=== PATIENT | female | born 1950 | race Caucasian/White ===

== ENCOUNTER 2019-08-24 23:59 | Inpatient (IN) | payer MEDICAID, MEDICARE, OTHER ==
[~2019-08-24] VITALS: Ht 160 cm; Wt 56.7 kg
[2019-08-25] MEDS ORDERED: HYDROCODONE/APAP 10/325MG 1 EA TABLET PO ONE (00:30)
[2019-08-25] MEDS ORDERED: IBUPROFEN 600 MG TABLET PO ONE ×2 (00:30→00:32)
[2019-08-25] MEDS ORDERED: HYDROCODONE/APAP 10/325MG 1 EA TABLET ONE (00:32)
[2019-08-25 00:43] LABS: BASOPHILS # (AUTO) 0.2 /CMM (0.0-0.2); BASOPHILS % (AUTO) 0.9 % (0.0-2.0); EOSINOPHILS % (AUTO) 0.2 % (0.0-6.0); HEMATOCRIT 38 % (33-45); HEMOGLOBIN 12.3 g/dL (11.5-14.8); LYMPHOCYTES # (AUTO) 2.7 /CMM (0.8-4.8); LYMPHOCYTES % (AUTO) 15.1 % (20.0-44.0); MEAN CORPUSCULAR HGB CONC 33 g/dl (31.0-36.0); MEAN CORPUSCULAR VOLUME 86 fL (82-100); MONOCYTES # (AUTO) 1.3 /CMM (0.1-1.30); MONOCYTES % (AUTO) 6.9 % (2.0-12.0); NEUTROPHILS # (AUTO) 13.9 /CMM (1.8-8.9); NEUTROPHILS % (AUTO) 76.9 % (43.0-81.0); PLATELET COUNT (AUTO) 270 /CMM (150-450); RED BLOOD CELL COUNT(AUTO) 4.38 MIL/uL (4.0-5.2)
[2019-08-25 01:01] LABS: ALBUMIN 3.1 g/dL (3.4-5.0); BILIRUBIN,TOTAL 0.2 mg/dL (0.2-1.0); CALCIUM, SERUM 8.6 mg/dL (8.5-10.1); CREATININE 0.8 mg/dL (0.6-1.3); POTASSIUM 5.4 mmol/L (3.5-5.1); TOTAL PROTEIN, SERUM 5.9 g/dL (6.4-8.2)
--- NOTE | 2019-08-25 01:07 | NUR ---
PT PROVIDED WITH 2 CARTON OF ORANGE HUICE AND SOME PUDDING D/T GLUCOSE REPORTED AT 45 BY LAB.
--- NOTE | 2019-08-25 01:26 | NUR ---
BIBS TO ER BED 7. AAOX4. NOT IN RESP DISTRESS, BREATHING EVEN AND UNLABORED. C/O BILAT LEG SWELLING, BACK PAIN, NECK PAIN AND SHOULDER PAIN. PT VERBALIZED THAT SHE WENT AMA FROM [facility] BECAUSE "THEY WERE NOT FEEDING ME". NO NOTED SOB. MD WAS AT BEDSIDE FOR EVAL. ORDERS RECEIVED NOTED AND CARRIED OUT. PT REFUSED MOTRIN AND NORCO MEDICATION MD AWARE. LAB WAS DRAWN MARÍA HEATH RESULT @ 45, GIVEN ORANGE JUICE AND PUDDING, WILL RE LINDA HEATH. WILL CONTINUE TO MONITOR
[2019-08-25] MEDS ORDERED: IPRATROPIUM NEB FS 0.5 MG/2.5 ML AMPUL.NEB ONE (01:47)
[2019-08-25] MEDS ORDERED: ALBUTEROL FS 2.5 MG/3 ML VIAL.NEB ONE (01:47)
[2019-08-25] MEDS ORDERED: IPRATROPIUM NEB FS 0.5 MG/2.5 ML AMPUL.NEB NEB ONE (02:00)
[2019-08-25] MEDS ORDERED: ALBUTEROL FS 2.5 MG/3 ML VIAL.NEB CONTNEB ONE (02:00)
[2019-08-25] MEDS ORDERED: predniSONE 20 MG TABLET PO ONE (02:00)
[2019-08-25] MEDS ORDERED: AZITHROMYCIN 250 MG TABLET PO ONE (02:00)
[2019-08-25] MEDS ORDERED: predniSONE 20 MG TABLET ONE (02:04)
[2019-08-25] MEDS ORDERED: AZITHROMYCIN 250 MG TABLET ONE (02:04)
[2019-08-25 02:06] LABS: ALANINE AMINOTRANSFERASE 32 U/L (12-78); ALBUMIN 3.2 g/dL (3.4-5.0); ALKALINE PHOSPHATASE 61 U/L (46-116); ASPARTATE AMINOTRANSFERASE 21 U/L (15-37); B-TYPE NATRIURETIC PEPTIDE 1324 PG/ML (0-125); BILIRUBIN,DIRECT 0.1 mg/dL (0.0-0.2); BILIRUBIN,TOTAL 0.2 mg/dL (0.2-1.0); TOTAL PROTEIN, SERUM 5.9 g/dL (6.4-8.2)
--- NOTE | 2019-08-25 02:17 | NUR ---
RECHECKED BS. STILL LOW AT 41 DESPITE ORANGE JUICE AND PUDDING. AWARE.
[2019-08-25] MEDS ORDERED: Sodium Chloride 154 MEQ in IV 10% DEXTROSE 1,000 ML IV PRN (02:30)
[2019-08-25] MEDS ORDERED: IV 10% DEXTROSE 1,000 ML IV ONE (03:00)
[2019-08-25 04:03] LABS: APPEARANCE,URINE Clear (CLEAR); BILIRUBIN,URINE Negative (NEGATIVE); BLOOD, URINE Negative Ery/uL (NEGATIVE); COLOR,URINE Yellow (YELLOW); KETONES,URINE Negative (NEGATIVE); LEUKOCYTE ESTERASE ,URINE Small (NEGATIVE); NITRITE, URINE Negative (NEGATIVE); PROTEIN,URINE Negative (NEGATIVE); UGLUCOSE Negative (NEGATIVE); UROBILINOGEN,URINE 0.2 EU/dL (0.2)
[2019-08-25] MEDS ORDERED: IV D5/0.45 NACL 1,000 ML IV PRN (04:50)
--- NOTE | 2019-08-25 04:54 | NUR ---
BED ASSIGNMENT 313-1
[2019-08-25] MEDS ORDERED: ONDANSETRON 4 MG TAB.RAPDIS ONE (04:55)
[2019-08-25] MEDS ORDERED: IV D5W 1,000 ML IV ONE (05:00)
[2019-08-25] MEDS ORDERED: ONDANSETRON HCL/PF 4 MG/2 ML VIAL IVP PRN (05:00)
[2019-08-25] MEDS ORDERED: MAGNESIUM HYDROXIDE 30 ML UDC PO PRN (05:00)
[2019-08-25] MEDS ORDERED: DEXTROSE 50%-WATER 50 ML DISP.SYRIN IV PRN (05:00)
[2019-08-25] MEDS ORDERED: HYDROCODONE/APAP 5/325MG 1 EACH TABLET PO PRN (05:00)
[2019-08-25] MEDS ORDERED: ACETAMINOPHEN 325 MG TABLET PO PRN (05:00)
[2019-08-25] MEDS ORDERED: MAG HYDROX/AL HYDROX/SIMETH 30 ML UDC PO PRN (05:00)
[2019-08-25] MEDS ORDERED: ZOLPIDEM TARTRATE 5 MG TABLET PO PRN (05:00)
[2019-08-25 05:10] LABS: BACTERIA,URINE Few /HPF (None Seen); RBC,URINE 0-2 /HPF (0-2); SQUAMOUS EPITHELIAL CELL,UR Few /HPF (None Seen)
--- NOTE | 2019-08-25 05:13 | NUR ---
REPORT GIVEN TO STARLA AVILES FOR JACKIE
[2019-08-25] MEDS ORDERED: ONDANSETRON HCL 4 MG/5 ML SOLUTION PO ONE (05:30)
[2019-08-25 05:45] VITALS: BP 153/81
--- NOTE | 2019-08-25 05:45 | NUR ---
tele/rn notes/NEW ADMISSION NOTES PATIENT IS A 69 YO FEMALE WHO WAS ADMITTED AND BROUGHT FROM ER ON A GURNEY FOR COPD EXACERBATION AND HYPOGLYCEMIA EPISODE, PATIENT CAME FROM [facility] AND LEFT AMA BEC REPORTED NOT BEING FED, UPON ADMISSION PATIENT BLOOD SUGAR VERY LOW IN THE 40'S. PATIENT WITH LABORED BREATHING AND ABLE TO WALK WITH SUPERVISION WITH WEAKNESS, ALERT ORIENTED X3, ABLE TO VERBALIZE NEEED, REQUESTING FOR ASSISTANCE WITH CASE MANAGEMENT FOR PLACEMENT AND MEDICATION. BED LOCKED, ROOM ORIENTATION PROVIDED, BELONGINGS CHECK, OFFERED AND PROVIDED SNACKS.BED LOCK, TELE ABDIRAHMAN GEE SR IN 70'S, ADMITING DR GAMING, MEDICATIONS REPORTED. TO MONITOR.
--- NOTE | 2019-08-25 06:00 | NUR ---
PT TRANSPORTED TO [facility] [address] WITH RN AND EMT AT BEDSIDE W/ ACLS PRTOTOCOL. NAD NOTED. PT AMBULATED FROM GURNEY TO BED ON STEADY GAIT W/O ASSIST
[2019-08-25] MEDS: IPRATROPIUM NEB FS 0.5 MG/2.5 ML AMPUL.NEB NEB SCH ×5 (06:06→20:01)
[2019-08-25] MEDS: ALBUTEROL FS 2.5 MG/3 ML VIAL.NEB NEB SCH ×5 (06:06→20:01)
[2019-08-25] MEDS: BLOOD SUGAR DIAGNOSTIC 1 EACH STRIP IN SCH ×5 (06:57→22:05)
[2019-08-25] MEDS: methylPREDNISolone SOD SUCC 125 MG/2ML VIAL IV SCH ×2 (07:09→16:51)
[2019-08-25] MEDS: INSULIN REGULAR, HUMAN 100 UNIT/ML 3 ML VIAL SQ PRN ×5 (07:11→22:18)
--- NOTE | 2019-08-25 07:25 | NUR ---
RN OPENING NOTE PT WAS RECEIVED IN BED AT LOWEST AND LOCKED WITH SIDE RAILS UP X2, A/O X4 BREATHING EVEN AND UNLABORED ON RA WITH NO S/S OF ANY DISTRESS OR PAIN AT THIS TIME, IV IS PATENT AND INTACT, ON TELE MONITOR SHOWING SR 70'S, PT NOTED TO BE AMBULATORY BUT REQUIRING MINOR ASSISTANCE, BS ARE MORE STABLE WITH PATIENT CURRENTLY EATING SNACKS AT THIS TIME, SAFETY PRECAUTIONS IN PLACE, CALL LIGHT IN REACH, WILL MONITOR ACCORDINGLY
[2019-08-25 07:55] VITALS: BP 148/76
[2019-08-25] MEDS ORDERED: MONT10TA22 PO (08:09)
[2019-08-25] MEDS ORDERED: QUET200T PO (08:09)
[2019-08-25] MEDS ORDERED: LISI-603 PO (08:09)
[2019-08-25] MEDS ORDERED: NYST5ORA MM (08:09)
[2019-08-25] MEDS ORDERED: AMLO10TA4 PO (08:09)
[2019-08-25] MEDS ORDERED: METF-440 PO (08:09)
[2019-08-25] MEDS ORDERED: ASPI-1169 PO (08:09)
[2019-08-25] MEDS ORDERED: FLUC100T PO (08:09)
[2019-08-25] MEDS ORDERED: SITA100T PO (08:09)
[2019-08-25] MEDS ORDERED: CITA20TA19 PO (08:09)
[2019-08-25] MEDS ORDERED: LORA-259 PO (08:09)
[2019-08-25] MEDS ORDERED: FAMO-131 PO (08:09)
[2019-08-25] MEDS ORDERED: TRAZ-257 PO (08:09)
[2019-08-25] MEDS: PANTOPRAZOLE 40 MG TABLET.DR PO SCH (08:11)
[2019-08-25] MEDS: MORPHINE SULFATE INJ 2 MG/ML DISP.SYRIN IV PRN ×4 (10:36→23:58)
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
[2019-08-25 16:00] VITALS: BP_SYST 138; BP_SYST 172; BP_DIAS 60; BP_DIAS 97
[2019-08-25] MEDS ORDERED: CLONIDINE HCL 0.1 MG TABLET PO PRN (16:00)
--- NOTE | 2019-08-25 16:00 | NUR ---
RN NOTE BP NOTED TO BE 181/100, MADE AWARE, WILL AWAIT FOR ORDERS
[2019-08-25] MEDS: LORAZEPAM 1 MG TABLET PO PRN (16:15)
[2019-08-25 18:11] VITALS: BP 166/80
--- NOTE | 2019-08-25 18:35 | NUR ---
RN CLOSING NOTE PT IN BED AT LOWEST AND LOCKED WITH SIDE RAILS UP X2, A/O X4 BREATHING EVEN AND UNLABORED ON RA WITH NO DISTRESS NOTED AT THIS TIME, IV IS PATENT AND INTACT, LAST BP WAS NOTED TO BE 166/80, SAFETY PRECAUTIONS IN PLACE, CALL LIGHT IN REACH, ALL NEEDS ATTENDED TO, WILL ENDORSE TO NIGHT RN FOR JACKIE.
--- NOTE | 2019-08-25 19:30 | NUR ---
MS RN OPENING NOTES PATIENT AWAKE IN BED. A/OX4. ON ROOM AIR. NO S/S OF SOB. PATIENT COMPLAINING OF RIGHT SHOULDER PAIN RATED 9/10. IV PRESENT ON LEFT WRIST, SIZE 20, INTACT & PATENT, HEP LOCKED. PATIENT ABLE TO VERBALIZE NEEDS. BED LOCKED, SIDE RAILS X2, CALL LIGHT WITHIN REACH. WILL CONTINUE TO MONITOR.
[2019-08-25 20:00] VITALS: BP 156/89
[2019-08-25] MEDS ORDERED: SODIUM POLYSTYRENE SULFONATE 15 G/60 ML BOTTLE PO ONE (21:30)
[2019-08-25] MEDS ORDERED: LORAZEPAM 1 MG TABLET PO PRN (21:30)
[2019-08-25] MEDS: MONTELUKAST SODIUM (10MG) 10 MG TABLET PO SCH (22:19)
[2019-08-25] MEDS ORDERED: FUROSEMIDE 20 MG/2 ML VIAL IV ONE (23:00)
[2019-08-26] MEDS: ALBUTEROL FS 2.5 MG/3 ML VIAL.NEB NEB SCH ×6 (00:58→21:15)
[2019-08-26] MEDS: IPRATROPIUM NEB FS 0.5 MG/2.5 ML AMPUL.NEB NEB SCH ×6 (00:58→21:15)
--- NOTE | 2019-08-26 01:30 | NUR ---
MS RN NOTES PATIENT'S BLOOD SUGAR 438. ISA NOTIFIED AND MADE AWARE. PER ORDERS, KEEP PATIENT ON MILD SLIDING SCALE AND ADMINISTER 10 UNITS OF REGULAR INSULIN
[2019-08-26] MEDS: BLOOD SUGAR DIAGNOSTIC 1 EACH STRIP IN SCH ×6 (01:33→21:24)
[2019-08-26] MEDS: INSULIN REGULAR, HUMAN 100 UNIT/ML 3 ML VIAL SQ PRN ×5 (01:34→21:28)
[2019-08-26] MEDS: LORAZEPAM 1 MG TABLET PO PRN ×3 (01:50→23:52)
[2019-08-26] MEDS: AZITHROMYCIN 500 MG in IV D5W 250 ML IV SCH (02:31)
[2019-08-26] MEDS: methylPREDNISolone SOD SUCC 125 MG/2ML VIAL IV SCH (05:24)
[2019-08-26] MEDS: MORPHINE SULFATE INJ 2 MG/ML DISP.SYRIN IV PRN ×4 (05:24→21:13)
--- NOTE | 2019-08-26 07:35 | NUR ---
MS RN CLOSING NOTES PATIENT AWAKE IN BED. A/OX4. ON ROOM AIR. NO S/S OF ACUTE RESPIRATORY DISTRESS AND NO COMPLAINTS OF PAIN AT THIS TIME. IV PRESENT ON RIGHT FA, SIZE 22, INTACT & PATENT, HEP LOCKED. BED LOCKED, SIDE RAILS X2, CALL LIGHT WITHIN REACH. WILL ENDORSE TO DAY SHIFT NURSE TO FOLLOW PLAN OF CARE.
[2019-08-26 07:53] LABS: BASOPHILS % (AUTO) 0.4 % (0.0-2.0); HEMATOCRIT 32 % (33-45); HEMOGLOBIN 10.8 g/dL (11.5-14.8); LYMPHOCYTES # (AUTO) 0.6 /CMM (0.8-4.8); LYMPHOCYTES % (AUTO) 5.4 % (20.0-44.0); MEAN CORPUSCULAR HGB CONC 34 g/dl (31.0-36.0); MEAN CORPUSCULAR VOLUME 84 fL (82-100); MONOCYTES # (AUTO) 0.4 /CMM (0.1-1.30); MONOCYTES % (AUTO) 3.3 % (2.0-12.0); NEUTROPHILS # (AUTO) 10.1 /CMM (1.8-8.9); NEUTROPHILS % (AUTO) 90.9 % (43.0-81.0); PLATELET COUNT (AUTO) 181 /CMM (150-450); RED BLOOD CELL COUNT(AUTO) 3.75 MIL/uL (4.0-5.2); WHITE BLOOD COUNT (AUTO) 11.1 K/uL (4.3-11.0)
[2019-08-26 08:00] VITALS: BP 147/82
--- NOTE | 2019-08-26 08:00 | NUR ---
ms rn received on bed, awake,alert,oriented x4,not in any form of distress, respirations even and unlabored,no sob noted, lungs are clear,abdomen soft,positive bowel sounds,denies pain at this time,all needs attended.
[2019-08-26 08:33] LABS: CALCIUM, SERUM 8.3 mg/dL (8.5-10.1); CREATININE 0.9 mg/dL (0.6-1.3); MAGNESIUM 1.5 mg/dL (1.8-2.4); POTASSIUM 4.4 mmol/L (3.5-5.1)
[2019-08-26 08:40] LABS: THYROID STIMULATING HORMONE 1.203 uIU/mL (0.358-3.74)
[2019-08-26 09:00] LABS: LYMPHOCYTES % (MANUAL) 7 % (16-48); MONOCYTES % (MANUAL) 4 % (0-11.0); NEUTROPHILS % (MANUAL) 89 (42-76)
--- NOTE | 2019-08-26 09:00 | NUR ---
ms sauer breakfast served,due meds given,tolerated well.
[2019-08-26 09:12] LABS: ALBUMIN 2.7 g/dL (3.4-5.0); BILIRUBIN,TOTAL 0.3 mg/dL (0.2-1.0); TOTAL PROTEIN, SERUM 5.1 g/dL (6.4-8.2)
[2019-08-26] MEDS: ASPIRIN 81 MG TAB.CHEW PO SCH (09:20)
[2019-08-26] MEDS: CITALOPRAM HYDROBROMIDE 20 MG TABLET PO SCH (09:20)
[2019-08-26] MEDS: LINAGLIPTIN 5 MG TABLET PO SCH (09:20)
--- NOTE | 2019-08-26 09:20 | NUR ---
ms rn was seen by dr. NASH W/ ORDERS MADE AND CARRIED OUT.
[2019-08-26] MEDS: LISINOPRIL (20MG) 20 MG TABLET PO SCH (09:21)
[2019-08-26] MEDS: AMLODIPINE BESYLATE 10 MG TABLET PO SCH (09:21)
[2019-08-26] MEDS: PANTOPRAZOLE 40 MG TABLET.DR PO SCH (09:27)
--- NOTE | 2019-08-26 11:00 | NUR ---
MS STARLA WAS SEEN BY MANE LEON W/ ORDERS MADE AND CARRIED OUT.
[2019-08-26] MEDS: methylPREDNISolone SOD SUCC 40 MG/ML VIAL IV SCH ×2 (12:49→21:13)
[2019-08-26] MEDS: Magnesium 1GM/D5W 100ML PREMIX 100 ML IV SCH ×2 (12:49→13:57)
[2019-08-26] MEDS ORDERED: diphenhydrAMINE HCL 25 MG CAPSULE PO PRN (15:30)
[2019-08-26 16:00] VITALS: BP 161/85
--- NOTE | 2019-08-26 17:22 | NUR ---
MS RN ON BED, NO DISTRESS NOTED.
[2019-08-26] MEDS ORDERED: QUETIAPINE FUMARATE 100 MG TABLET PO SCH (18:00)
--- NOTE | 2019-08-26 18:07 | NUR ---
ms rn on bed,no distress noted.
--- NOTE | 2019-08-26 19:44 | NUR ---
MS RN OPENING NOTES PATIENT RESTING IN BED COMFORTABLY; A/O X4; BREATHING EVEN AND UNLABORED; NO SOB; PATIENT TOLERATING ROOM AIR WELL; NO S/S OF ACUTE RESPIRATORY DISTRESS NOTED; R FA #[id number] INTACT AND PATENT; FLUSHING WELL; NO S/S OF REDNESS OR INFILTRATION; SAFETY PRECAUTIONS IN PLACE; BED LOCKED IN LOW POSITION; SIDE RAILS X2; CALL LIGHT WITHIN REACH; WILL CONTINUE TO MONITOR
[2019-08-26 20:00] VITALS: BP 165/88
--- NOTE | 2019-08-26 20:15 | NUR ---
MS RN NOTES PATIENT REQUESTED A SMOKE BREAK; PATIENT ACCOMPANIED BY JUAN RODRIGUEZ
[2019-08-26] MEDS: TRAZODONE 50 MG TABLET PO SCH ×2 (21:13→22:00)
[2019-08-26] MEDS: MONTELUKAST SODIUM (10MG) 10 MG TABLET PO SCH (21:13)
--- NOTE | 2019-08-26 21:51 | NUR ---
MS RN NOTES PATIENT AGITATED AND CONFUSED; PATIENT REFUSING MEDICATION; PATIENT REQUESTED FOR SEROQUEL AND TRAZADONE TO BE TAKEN TOGETHER; UNABLE TO ADMINISTER SEROQUEL SINCE MED IS NOT DUE; PATIENT UPSET; PATIENT DOES NOT WANT TO TAKE TRAZADONE ALONE; PATIENT ALSO REQUESTED ANOTHER SMOKE BREAK; PATIENT WAS INFORMED OF SMOKE BREAK TIMES AND WAS REMINDED SHE HAD ALREADY GONE DOWN FOR SMOKE BREAK; PATIENT DENIES HAVING A SMOKE BREAK; AND WOULD LIKE TO LEAVE AMA; WILL CONTINUE TO MONITOR
--- NOTE | 2019-08-26 22:51 | NUR ---
MS RN NOTES PATIENT DECIDED TO STAY IN HOSPITAL; WILL CONTINUE TO MONITOR
--- NOTE | 2019-08-26 23:52 | NUR ---
MS RN NOTES PATIENT AGREED TO TAKE TRAZONE; PATIENT REQUESTED ATIVAN WELL; MEDICATIONS ADMINISTERED ORDERED; WILL CONTINUE TO MONITOR
[2019-08-27] MEDS: BLOOD SUGAR DIAGNOSTIC 1 EACH STRIP IN SCH ×3 (01:00→08:25)
--- NOTE | 2019-08-27 01:00 | NUR ---
MS RN NOTES PATIENT REFUSING ACCU CHECKS PER ORDER; PATIENT AWARE BLOOD SUGAR WILL BE ELEVATED; PATIENT WAS EDUCATED ON IMPORTANCE OF COMPLIANCE; PATIENT ALSO EDUCATED ON IMPORTANCE OF ACCU CHECKS; PATIENT STILL REFUSED; WILL CONTINUE TO MONITOR
[2019-08-27] MEDS: ALBUTEROL FS 2.5 MG/3 ML VIAL.NEB NEB SCH ×4 (01:13→13:51)
[2019-08-27] MEDS: IPRATROPIUM NEB FS 0.5 MG/2.5 ML AMPUL.NEB NEB SCH ×4 (01:13→13:51)
[2019-08-27] MEDS: MORPHINE SULFATE INJ 2 MG/ML DISP.SYRIN IV PRN ×2 (01:49→09:36)
[2019-08-27] MEDS: AZITHROMYCIN 500 MG in IV D5W 250 ML IV SCH (02:00)
--- NOTE | 2019-08-27 02:10 | NUR ---
MS RN NOTES PATIENT AGREED TO ALSO RECEIVE AZITHROMYCIN IV ORDERED; MED NOT AVAILABLE; NURSING TITLE DEPARTMENT MANAGER MADE AWARE; AWAITING MEDICATION; WILL CONTINUE TO MONITOR
[2019-08-27] MEDS ORDERED: AZITHROMYCIN 500 MG VIAL ONE (02:37)
[2019-08-27] MEDS: INSULIN REGULAR, HUMAN 100 UNIT/ML 3 ML VIAL SQ PRN ×2 (03:17→12:41)
--- NOTE | 2019-08-27 03:21 | NUR ---
MS RN NOTES PATIENT REQUESTED BLOOD SUGAR TO BE CHECKED SINCE SHE HAS BEEN SNACKING ALL NIGHT; BLOOD SUGAR CHECKED; WILL ADMINISTER COVERAGE; WILL CONTINUE TO MONITOR
--- NOTE | 2019-08-27 03:35 | NUR ---
MS RN NOTES PATIENT NON-COMPLIANT; PATIENT STARTED TO REFUSE ANTIBIOTIC; AZITHROMYCIN HELD; WILL CONTINUE TO MONITOR;
[2019-08-27] MEDS: methylPREDNISolone SOD SUCC 40 MG/ML VIAL IV SCH (04:07)
--- NOTE | 2019-08-27 04:08 | NUR ---
MS RN NOTES PATIENT NON-COMPLIANT WITH ALL MEDICATION; PATIENT REFUSING SOLU-MEDROL; PATIENT ADVISED ON IMPORTANCE OF COMPLIANCE THROUGHOUT SHIFT; PATIENT STILL REFUSED; WILL CONTINUE TO MONITOR
--- NOTE | 2019-08-27 04:23 | NUR ---
MS RN NOTES PATIENT REQUESTED IV TO BE REMOVED; IV SITE REMOVED; IV TIP INTACT; NO S/S OF BLEEDING
--- NOTE | 2019-08-27 04:56 | NUR ---
MS RN NOTES ACCOMPANIED PATIENT TO VENDING MACHINE FOR SNACKS; PATIENT BACK IN ROOM; PATIENT AWAKE, A/O X3; PATIENT CONTINUES TO REFUSE MEDICATION; PATIENT ADVISED ON IMPORTANCE OF COMPLIANCE THROUGHOUT HOSPITALIZATION; TO NO AVAIL, PATIENT STILL REFUSING; SAFETY PRECAUTIONS IN PLACE; BED LOCKED IN LOW POSITION; CALL LIGHT WITHIN REACH; WILL CONTINUE TO MONITOR
--- NOTE | 2019-08-27 07:03 | NUR ---
MS RN CLOSING NOTES PATIENT AWAKE, A/O X4; NO SOB; BREATHING EVEN AND UNLABORED; PATIENT STILL REFUSING IV ACCESS AND MEDICATION; ALL NEEDS RENDERED; PATIENT NON-COMPLIANT THROUGHOUT SHIFT; SAFETY PRECAUTIONS IN PLACE; BED LOCKED IN LOW POSITION; CALL LIGHT WITHIN REACH; WILL ENDORSE CONTINUITY OF CARE TO ONCOMING SHIFT;
--- NOTE | 2019-08-27 07:37 | NUR ---
MS/RN OPENING NOTES RECEIVED PATIENT AWAKE, A/O X4; NO SOB; BREATHING EVEN AND UNLABORED; PATIENT STILL REFUSING IV ACCESS AND MEDICATION; PATIENT IS AMBULATORY. SAFETY PRECAUTIONS IN PLACE; BED LOCKED IN LOW POSITION; CALL LIGHT WITHIN REACH; WILL CONTINUE TO MONITOR.
[2019-08-27] MEDS: PANTOPRAZOLE 40 MG TABLET.DR PO SCH (07:53)
[2019-08-27 07:57] LABS: BASOPHILS % (AUTO) 0.2 % (0.0-2.0); HEMATOCRIT 33 % (33-45); LYMPHOCYTES # (AUTO) 0.3 /CMM (0.8-4.8); LYMPHOCYTES % (AUTO) 2.3 % (20.0-44.0); MEAN CORPUSCULAR HGB CONC 33 g/dl (31.0-36.0); MEAN CORPUSCULAR VOLUME 86 fL (82-100); MONOCYTES # (AUTO) 0.5 /CMM (0.1-1.30); MONOCYTES % (AUTO) 3.4 % (2.0-12.0); NEUTROPHILS # (AUTO) 13.8 /CMM (1.8-8.9); NEUTROPHILS % (AUTO) 94.1 % (43.0-81.0); PLATELET COUNT (AUTO) 188 /CMM (150-450); RED BLOOD CELL COUNT(AUTO) 3.85 MIL/uL (4.0-5.2); WHITE BLOOD COUNT (AUTO) 14.6 K/uL (4.3-11.0)
[2019-08-27 08:00] VITALS: BP 105/75
[2019-08-27] MEDS: ASPIRIN 81 MG TAB.CHEW PO SCH (08:21)
[2019-08-27] MEDS: LISINOPRIL (20MG) 20 MG TABLET PO SCH (08:21)
[2019-08-27] MEDS: CITALOPRAM HYDROBROMIDE 20 MG TABLET PO SCH (08:21)
[2019-08-27 08:22] VITALS: BP 105/75
[2019-08-27] MEDS: LINAGLIPTIN 5 MG TABLET PO SCH (08:22)
[2019-08-27] MEDS: AMLODIPINE BESYLATE 10 MG TABLET PO SCH (08:22)
[2019-08-27 09:25] LABS: THYROID STIMULATING HORMONE 1.299 uIU/mL (0.358-3.74); URIC ACID 5.2 mg/dL (2.6-7.2)
[2019-08-27] MEDS ORDERED: FUROSEMIDE 40 MG/4 ML VIAL IV ONE (11:00)
[2019-08-27] MEDS: LORAZEPAM 1 MG TABLET PO PRN (11:11)
[2019-08-27] MEDS ORDERED: predniSONE 20 MG TABLET PO SCH (12:30)
[2019-08-27] MEDS ORDERED: BUDESONIDE RESPULE INH 0.25 MG/2 ML AMPUL.NEB NEB SCH (12:30)
[2019-08-27] MEDS ORDERED: GUAIFENESIN LA 600 MG TABLET.SA PO SCH (12:30)
--- NOTE | 2019-08-27 13:12 | NUR ---
MS/RN NOTES BS 442MG/DL ADMINISTERED 10 UNIT INSULIN PER SLIDING SCALE MD WAS AWARE. WILL CONTINUE TO MONITOR.
[2019-08-27 13:13] LABS: CALCIUM, SERUM 8.8 mg/dL (8.5-10.1); CREATININE 1.2 mg/dL (0.6-1.3); MAGNESIUM 1.9 mg/dL (1.8-2.4); PHOSPHORUS 4.4 mg/dL (2.5-4.9)
--- NOTE | 2019-08-27 13:30 | NUR ---
MS/RN NOTES BS 208MG/DL
--- NOTE | 2019-08-27 14:26 | NUR ---
MS/RN NOTES PATIENT LEFT AMA.
== END 2019-08-27 13:30 | disposition left against medical advice (07) | DRG 191 ==
LOC: ER 08-25 00:06 → TELE 08-25 04:56 → MED 08-25 08:48
PROVIDERS: ADMIT Hospitalist; ATTEND Nurse Practitioner Acute Care
DX: J44.1 Chronic obstructive pulmonary disease with (acute) exacerbation (principal); E44.1 Mild protein-calorie malnutrition; N39.0 Urinary tract infection, site not specified; J81.1 Chronic pulmonary edema; E22.2 Syndrome of inappropriate secretion of antidiuretic hormone; N17.9 Acute kidney failure, unspecified; I10 Essential (primary) hypertension; E11.649 Type 2 diabetes mellitus with hypoglycemia without coma; Z59.0 Homelessness; E87.70 Fluid overload, unspecified; F17.210 Nicotine dependence, cigarettes, uncomplicated; F39 Unspecified mood [affective] disorder; Z87.01 Personal history of pneumonia (recurrent); Z91.19 Patient's noncompliance with other medical treatment and regimen; E88.09 Other disorders of plasma-protein metabolism, not elsewhere classified; D72.829 Elevated white blood cell count, unspecified; E11.65 Type 2 diabetes mellitus with hyperglycemia; Z68.22 Body mass index [BMI] 22.0-22.9, adult; E83.42 Hypomagnesemia
CPT/HCPCS: 36415; 71045-TC; 76641-TC; 80048-TC; 80053-TC; 80061-TC; 80076-TC; 81000-TC; 82962-TC; 83735-TC; 83880; 84100-TC; 84443-TC; 84484-TC; 84550-TC; 85025-TC; 87081-TC; 87086-TC; 93307-TC; G0378; J0456; J1815; J1940; J2270; J2920; J2930; J3475; J3490; J7060; J7070; Q0162; Q0163